=== PATIENT | male | born 1950 | race African-American/Black ===

== ENCOUNTER 2016-10-25 20:28 | Emergency (ER) | payer OTHER ==
[~2016-10-25] VITALS: Ht 189.2 cm; Wt 82.0 kg
[~2016-10-25 20:28] MED LIST: ARIP1TAB46 PO; BISA5TAB64 PO; CYMB30CA PO; GABA100C4 PO; LIPI20TA PO; LISI10TA PO; MEDR4PAK3 PO; METH750T2 PO; MULT-65 PO; PERC5TAB12 PO; PRAZ5CAP16 PO; SUBO8MIS SL; TRAZ100 PO; VIAG100T PO
[2016-10-25 20:32] VITALS: BP 169/78; PULSE 55; RESP 14; TEMP 97.7; O2SAT 98
--- NOTE | 2016-10-25 20:57 | PD ---
HPI Chief Complaint: Pain: Acute or Chronic Time Seen by Provider: 20:48 Travel History International Travel<30 days: No Contact w/Intl Traveler<30days: No Traveled to known affect area: No History of Present Illness HPI 66-year-old male with history of PTSD, hypertension, Suboxone use, presents for evaluation of neck pain. For the past 3 days the patient has had a stiffness on the left posterior aspect of the neck that radiates into the left shoulder. The pain is worse with movement. He has actually had this pain for the past 2 years but it has worsened over the past few days. He says that the pain seems to wax and wane. The patient was seen here once in 2016 and once in 2014 for similar symptoms. He reports that in the past injection of Toradol and Decadron helped with his symptoms. He denies any trauma to the neck. He denies any chest pain, shortness of breath, exertional pain, numbness or tingling or weakness in the extremities. The patient reports a history of "arthritis" but he doesn't believe that he has never had any imaging of his neck. No other complaints. PFSH Past Medical History Hx Anticoagulant Therapy: Yes (ASA) Arthritis: Yes (BACK AND LEGS) Depression: Yes (PTSD) Cardiovascular Problems: Yes (HTN) High Cholesterol: Yes Diminished Hearing: No Hepatitis: Yes (C) Hypertension: Yes Musculoskeletal: Yes (CHRONIC LEG AND BACK PAIN) Neurologic: Yes (PTSD) Immunizations Current: Yes Social History Alcohol Use: No Tobacco Use: No Substance Use: No Allergies-Medications (Allergen,Severity, Reaction): Coded Allergies: No Known Allergies (Verified , 10/25/16) Reported Meds & Prescriptions Reported Meds & Active Scripts Active Medrol Dosepak (Methylprednisolone) 4 Mg Dspk 4 Mg PO DIRECTED Per Pharmacist direction Review of Systems Except as stated in HPI: all other systems reviewed are Neg Physical Exam Narrative GENERAL: Well-developed well-nourished male in no acute distress SKIN: Warm and dry. No rash no bruising or soft tissue swelling HEAD: Atraumatic. Normocephalic. EYES: Pupils equal and round. No scleral icterus. No injection or drainage. ENT: No nasal bleeding or discharge. Mucous membranes pink and moist. NECK: Trachea midline. No JVD. CARDIOVASCULAR: Regular rate and rhythm. No murmur appreciated. RESPIRATORY: No accessory muscle use. Clear to auscultation. Breath sounds equal bilaterally. GASTROINTESTINAL: Abdomen soft, non-tender, nondistended. Hepatic and splenic margins not palpable. MUSCULOSKELETAL: No obvious deformities. The patient has pain with range of motion activities of the neck. There is some tenderness to palpation to the left cervical paravertebral musculature. The patient intends full muscle strength in the upper extremities. Full range of motion the upper extremities. NEUROLOGICAL: Awake and alert. No obvious cranial nerve deficits. Motor grossly within normal limits. Normal speech. Data Data Last Documented VS Vital Signs Date Time Temp Pulse Resp B/P Pulse Ox O2 Delivery O2 Flow Rate FiO2 10/25/16 20:32 97.7 55 14 169/78 98 Room Air Orders Ketorolac Inj (Toradol Inj) (10/25/16 21:00) Dexamethasone Inj (Decadron Inj) (10/25/16 21:00) Ct Cerv Spine W/O Contrast (10/25/16 ) [facility] Medical Decision Making Medical Screen Exam Complete: Yes Emergency Medical Condition: Yes Medical Record Reviewed: Yes Differential Diagnosis Degenerative disc disease, spinal stenosis, herniated nucleus pulposus, mass, fracture, referred cardiac pain, carotid artery dissection, subclavian steal syndrome Narrative Course This is a 66-year-old male who has been experiencing left-sided neck pain that radiates into the left shoulder for the past 2 years, worse over the past 3 days. Pain is unrelieved with the use of Suboxone, Tylenol. He denies any trauma to the neck. On examination the pain is clearly reproduced with movement of the neck and by history and examination is likely musculoskeletal. I don't suspect cardiac etiology in this pain. The patient has never had any imaging of his neck and therefore CT of the cervical spine has been ordered. The patient has achieved some success in the past with the use of Decadron and Toradol injections for pain relief. CT of the cervical spine reveals moderate to severe degenerative disc disease, no acute abnormalities. Upon reexamination the patient feels improved. He has had success in the past with Medrol Dosepak and so he'll be discharged with that. Diagnosis Primary Impression: Degenerative joint disease of cervical spine Qualified Code: M47.22 - Osteoarthritis of spine with radiculopathy, cervical region Additional Impression: Cervical radiculopathy Additional Instructions: Medication as needed. Follow up closely with primary care physician. Return for any emergent medical conditions. Med/Other Pt SpecificInfo: Prescription(s) given Scripts Methylprednisolone Dosepak (Medrol Dosepak)4 Mg Dspk4 Mg PO DIRECTED #1 DSPK Ref 0 Per Pharmacist direction Prov:Carlene Nguyen MD 10/25/16 Disposition: 01 DISCHARGE HOME Condition: Stable Damien Schneider Oct 25, 2016 20:57
[2016-10-25] MEDS ORDERED: KETOROLAC TROMETHAMINE 60 MG/2 ML (IM) VIAL IM ONE (21:00)
[2016-10-25] MEDS ORDERED: DEXAMETHASONE SOD PHOS 4 MG/ML VIAL IM ONE (21:00)
--- NOTE | 2016-10-25 22:21 | RADRPT ---
EXAM DATE/TIME: 10/25/2016 20:58 [facility] COMPARISON: No previous studies available for comparison. INDICATIONS : Chronic left sided neck pain with stiffness. RADIATION DOSE: 17.47 CTDIvol (mGy) MEDICAL HISTORY : Hypertension. SURGICAL HISTORY : None. ENCOUNTER: Initial ACUITY: >1 yr PAIN SCALE: 7/10 LOCATION: Left neck TECHNIQUE: Volumetric scanning of the cervical spine was performed. Multiplanar reconstructions in the sagittal, coronal and oblique axial planes were performed. Using automated exposure control and adjustment o f the mA and/or kV according to patient size, radiation dose was kept as low as reasonably achievable to obtain optimal diagnostic quality images. FINDINGS: There is moderate to severe degenerative disc disease in the cervical spine. No acute fracture or sig nificant spondylolisthesis. There is [id number] canal stenosis at C5-6-7. CONCLUSION: 1. No acute fracture. Moderate to severe degenerative disc disease of the cervical spine. Bashir Bennett MD on October 25, 2016 at 22:17 Board Certified Radiologist. This report was verified electronically.
[2016-10-25] MEDS ORDERED: MEDR4PAK PO (22:37)
== END 2016-10-25 22:47 | disposition home or self-care (01) ==
LOC: NEPB 20:28
DX: M47.812 Spondylosis without myelopathy or radiculopathy, cervical region (principal); M54.12 Radiculopathy, cervical region; I10 Essential (primary) hypertension; E78.00 Pure hypercholesterolemia, unspecified; F43.10 Post-traumatic stress disorder, unspecified
CPT/HCPCS: 72125; 96372; 99283; J1100; J1885

== ENCOUNTER 2017-10-11 18:25 | Inpatient (IN) | payer MEDICARE, OTHER ==
[~2017-10-11] VITALS: Ht 188 cm; Wt 74.0 kg
[2017-10-11] VITALS (7 sets, daily range): BP systolic 136–181; BP diastolic 67–90; PULSE 67–99; RESP 14–22; TEMP 98.5–99; O2SAT 92–95
[~2017-10-11 18:25] MED LIST changes: -ARIP1TAB46 PO; -BISA5TAB64 PO; -CYMB30CA PO; -GABA100C4 PO; -LIPI20TA PO; -LISI10TA PO; +MEDR4PAK PO; -MEDR4PAK3 PO; -METH750T2 PO; -MULT-65 PO; -PERC5TAB12 PO; -PRAZ5CAP16 PO; -SUBO8MIS SL; -TRAZ100 PO; -VIAG100T PO
[2017-10-11] MEDS ORDERED: unknown bp med (18:52)
[2017-10-11] MEDS ORDERED: LIPI10TA PO (18:52)
[2017-10-11] MEDS ORDERED: SODIUM CHLOR 0.9% 1000 ML INJ 1,000 ML IV ONE (19:00)
[2017-10-11] MEDS: RESP: ALBUTEROL 2.5 MG/IPRATROPIUM 0.5 MG NEB (SCH) INH (19:24)
[2017-10-11 19:29] LABS: AUTOMATED NEUTROPHIL # 12.5 TH/MM3 (1.8-7.7); BASOPHIL # 0.2 TH/MM3 (0-0.2); BASOPHIL % 1.5 % (0.0-2.0); HEMATOCRIT 39.3 % (39.0-51.0); LYMPH % 12.7 % (9.0-44.0); LYMPHOCYTE # 2.2 TH/MM3 (1.0-4.8); MEAN CELL VOLUME 87.1 FL (80.0-100.0); MEAN CORPUSCULAR HEMOGLOBIN 28.7 PG (27.0-34.0); MEAN PLATELET VOLUME 8.6 FL (7.0-11.0); MONO % 12.2 % (0.0-8.0); MONOCYTE # 2.1 TH/MM3 (0-0.9); NEUT % 73.6 % (16.0-70.0); PLATELET COUNT 457 TH/MM3 (150-450); RED BLOOD COUNT 4.51 MIL/MM3 (4.50-5.90); RED CELL DISTRIBUTION WIDTH 15.3 % (11.6-17.2)
--- NOTE | 2017-10-11 19:57 | RADRPT ---
EXAM DATE/TIME: 10/11/2017 19:11 [facility] COMPARISON: CHEST SINGLE AP, December 12, 2014, 23:40. INDICATIONS : Flu-like symptoms started 1 week ago. MEDICAL HISTORY : Hypercholesterolemia. Hypertension SURGICAL HISTORY : None. ENCOUNTER: Initial ACUITY: 1 week PAIN SCORE: 0/10 LOCATION: Bilateral chest FINDINGS: A single view of the chest demonstrates acute air space disease in the left midlung and base. Right l anayeli is clear. The cardiomediastinal contours are unremarkable. Osseous structures are intact. CONCLUSION: Acute left mid lung and base airspace disease. Coy Henry MD on October 11, 2017 at 19:54 Board Certified Radiologist. This report was verified electronically.
[2017-10-11 19:59] LABS: BICARBONATE 28.5 MEQ/L (21.0-32.0); CALCIUM 9.3 MG/DL (8.5-10.1); CREATININE 1.36 MG/DL (0.60-1.30); MAGNESIUM 2.4 MG/DL (1.5-2.5)
[2017-10-11 20:07] LABS: BANDS 2 % (0-6); LYMPHOCYTES 7 % (9-44); METAMYELOCYTES 5 % (0-1); MONOCYTES 4 % (0-8); NEUTROPHIL # MANUAL DIFF 15.1 TH/MM3 (1.8-7.7); POLYS (SEG NEUTROPHILS) 82 % (16-70)
[2017-10-11] MEDS ORDERED: cefTRIAXone INJ 1,000 MG in SODIUM CHLORIDE 0.9% INJ 100 ML IV ONE (20:30)
[2017-10-11] MEDS ORDERED: AZITHROMYCIN INJ 500 MG in SODIUM CHLOR 0.9% 250 ML INJ 250 ML IV ONE (20:30)
--- NOTE | 2017-10-11 20:41 | PD ---
HPI Chief Complaint: Cold / Flu Symptoms Time Seen by Provider: 18:50 Travel History International Travel<30 days: No Contact w/Intl Traveler<30days: No Traveled to known affect area: No History of Present Illness HPI 67-year-old male that presents to the ED for evaluation of cold-like symptoms. Per patient she's had this for over a week and a half. He states that he feels weak and tired. Has productive cough and has trouble speaking because of the cough. Cough is nonproductive. No history of COPD or asthma. He states that he comes here with his was also having same symptoms but he had at first. Does having congestion. Per patient his urine has been changing color as well as he believes that he is dehydrated. He denies any recent travel. No chest pain. No shortness of breath. Mainly cough. States having some subjective fevers and chills. Has no known allergies to medication. No other medical issues at this time. PFSH Past Medical History Hx Anticoagulant Therapy: Yes (ASA) Arthritis: Yes (BACK AND LEGS, DJD) Depression: Yes (PTSD) Cardiovascular Problems: Yes (HTN) High Cholesterol: Yes Diminished Hearing: No Hepatitis: Yes (C- treated) Hypertension: Yes Musculoskeletal: Yes (CHRONIC LEG AND BACK PAIN) Neurologic: Yes (PTSD) Immunizations Current: Yes Influenza Vaccination: No Past Surgical History Surgical History: No Previous Surgery Social History Alcohol Use: No Tobacco Use: No Substance Use: No Allergies-Medications (Allergen,Severity, Reaction): Coded Allergies: No Known Allergies (Verified Adverse Reaction, Unknown, 10/11/17) Reported Meds & Prescriptions Reported Meds & Active Scripts Active Reported [unknown bp med] Lipitor (Atorvastatin Calcium) 10 Mg Tab 10 Mg PO HS Review of Systems Except as stated in HPI: all other systems reviewed are Neg Physical Exam Narrative GENERAL: Well-nourished, well-developed patient in no apparent distress. SKIN: Warm and dry. HEAD: Atraumatic. Normocephalic. EYES: Pupils equal and round reactive to light and accommodation. No scleral icterus. No injection or drainage. ENT: No nasal bleeding or discharge. Mucous membranes pink and moist. TMs are clear with no sign of infection or perforation. No mastoid tenderness. Ear canals are intact bilaterally. No lymphadenopathy. Nostril mucosa is red and moist with clear mucus noted. No sinus tenderness to palpation noted. Tonsils are not enlarged or swollen. No ulvua Deviation. Tongue is midline. NECK: Trachea midline. No JVD. No meningeal signs noted CARDIOVASCULAR: Regular rate and rhythm. RESPIRATORY: No accessory muscle use. Patient has wheezing and rales heard especially in the lower lung chin. Breath sounds equal bilaterally. GASTROINTESTINAL: Abdomen soft, non-tender, nondistended. Hepatic and splenic margins not palpable. MUSCULOSKELETAL: Extremities without clubbing, cyanosis, or edema. No obvious deformities. NEUROLOGICAL: Awake and alert. No obvious cranial nerve deficits. Motor grossly within normal limits. Five out of 5 muscle strength in the arms and legs. Normal speech. PSYCHIATRIC: Appropriate mood and affect; insight and judgment normal. Data Data Last Documented VS Vital Signs Date Time Temp Pulse Resp B/P (MAP) Pulse Ox O2 Delivery O2 Flow Rate FiO2 10/11/17 19:10 67 22 148/67 (94) 92 Room Air 10/11/17 18:26 98.5 Orders Orders Complete Blood Count With Diff (10/11/17 19:00) Basic Metabolic Panel (Bmp) (10/11/17 19:00) Blood Culture (10/11/17 19:00) Urinalysis - C+S If Indicated (10/11/17 19:00) Magnesium (Mg) (10/11/17 19:00) Influenzae A/B Antigen (10/11/17 19:00) Chest, Single Ap (10/11/17 19:00) Iv Access Insert/Monitor (10/11/17 19:00) Oximetry (10/11/17 19:00) Sodium Chlor 0.9% 1000 Ml Inj (Ns 1000 M (10/11/17 19:00) Albuterol-Ipratropium Neb (Duoneb Neb) (10/11/17 19:15) Ceftriaxone Inj (Rocephin Inj) (10/11/17 20:30) Azithromycin Inj (Zithromax Inj) (10/11/17 20:30) Admit Order (Ed Use Only) (10/11/17 20:35) Labs Laboratory Tests Test 10/11/17 19:20 White Blood Count 17.0 TH/MM3 Red Blood Count 4.51 MIL/MM3 Hemoglobin 13.0 GM/DL Hematocrit 39.3 % Mean Corpuscular Volume 87.1 FL Mean Corpuscular Hemoglobin 28.7 PG Mean Corpuscular Hemoglobin Concent 33.0 % Red Cell Distribution Width 15.3 % Platelet Count 457 TH/MM3 Mean Platelet Volume 8.6 FL Neutrophils (%) (Auto) 73.6 % Lymphocytes (%) (Auto) 12.7 % Monocytes (%) (Auto) 12.2 % Eosinophils (%) (Auto) 0.0 % Basophils (%) (Auto) 1.5 % Neutrophils # (Auto) 12.5 TH/MM3 Lymphocytes # (Auto) 2.2 TH/MM3 Monocytes # (Auto) 2.1 TH/MM3 Eosinophils # (Auto) 0.0 TH/MM3 Basophils # (Auto) 0.2 TH/MM3 CBC Comment AUTO DIFF Differential Total Cells Counted 100 Neutrophils % (Manual) 82 % Band Neutrophils % 2 % Lymphocytes % 7 % Monocytes % 4 % Neutrophils # (Manual) 15.1 TH/MM3 Metamyelocytes 5 % Differential Comment FINAL DIFF MANUAL Blood Urea Nitrogen 29 MG/DL Creatinine 1.36 MG/DL Random Glucose 127 MG/DL Calcium Level 9.3 MG/DL Magnesium Level 2.4 MG/DL Sodium Level 137 MEQ/L Potassium Level 4.0 MEQ/L Chloride Level 101 MEQ/L Carbon Dioxide Level 28.5 MEQ/L Anion Gap 8 MEQ/L Estimat Glomerular Filtration Rate 64 ML/MIN MDM Medical Decision Making Medical Screen Exam Complete: Yes Emergency Medical Condition: Yes Medical Record Reviewed: Yes Interpretation(s) Last Impressions Chest X-Ray 10/11/17 1900 Signed Impressions: Service Date/Time: Wednesday, October 11, 2017 19:11 - CONCLUSION: Acute left mid lung and base airspace disease. Coy Henry MD CBC & BMP Diagram 10/11/17 19:20 Calcium Level 9.3, Magnesium Level 2.4 Differential Diagnosis Bronchitis versus pneumonia versus influenza versus normal exam Narrative Course 67-year-old male that presents to the ED for evaluation of cold-like symptoms. Patient was properly examined and was found to have signs and symptoms concerning for pneumonia. Labs and imaging were ordered. Labs and imaging confirmed pneumonia diagnosis with leukocytosis. Patient has been noted to be satting at 93/94 here. Concern for hypoxia. Patient denies any history of COPD or asthma. Because of patient's symptoms, she is for admission. My attending Dr. Nguyen agrees with this. Case was discussed with Dr. Wu who agrees to admission. Patient agrees to this. Patient was started on antibiotics. Diagnosis Primary Impression: Pneumonia Qualified Codes: J18.9 - Pneumonia, unspecified organism Additional Impression: Hypoxia Admitting Information Admitting Physician Requests: Admit Robbie Ortiz Oct 11, 2017 20:41
[2017-10-11] MEDS ORDERED: ONDANSETRON HCL 4 MG/2 ML VIAL IVP PRN (20:45)
[2017-10-11] MEDS ORDERED: RESP: ALBUTEROL 2.5 MG/IPRATROPIUM 0.5 MG NEB (PRN) NEB (20:45)
[2017-10-11] MEDS ORDERED: ACETAMINOPHEN 325 MG TAB PO PRN (20:45)
[2017-10-11] MEDS ORDERED: LACTULOSE SYRUP 20 GM/30 ML CUP PO PRN (20:45)
[2017-10-11] MEDS ORDERED: SODIUM CHLORIDE 0.9% FLUSH 10 ML FLUSH IV FLUSH PRN (20:45)
[2017-10-11] MEDS ORDERED: MAGNESIUM HYDROXIDE SUSP 30 ML CUP PO PRN (20:45)
[2017-10-11] MEDS ORDERED: SENNOSIDES 8.6 MG TAB PO PRN (20:45)
[2017-10-11] MEDS ORDERED: ACETAMINOPHEN/HYDROcodone 325 MG/5 MG TAB PO PRN (20:45)
[2017-10-11] MEDS ORDERED: BISACODYL 10 MG SUPP RECTAL PRN (20:45)
--- NOTE | 2017-10-11 20:47 | HHI.HP ---
HPI Service [facility] Primary Care Physician [facility] Admission Diagnosis acute pneumonia, hypoxia Diagnoses: (1) PNA (pneumonia) Diagnosis: Principal (2) HTN (hypertension) Diagnosis: Principal (3) Renal insufficiency Diagnosis: Principal Travel History International Travel<30 Days: No Contact w/Intl Traveler <30 Da: No Traveled to Known Affected Are: No History of Present Illness This is a 67-year-old male with a PMH of HTN, Hepatitis C, Hyperlipidemia, Depression and Arthritis who presented to the ER w/ complaints of cough and generalized fatigue for almost 2wks. Reports persistent productive cough w/ yellow/brown colored sputum in addition to nasal congestion. Denies fever or chills. Does report associated SOB, worse w/ exertion, moderate severity. No sick contacts. On arrival, BP 180/80, HR 78, O2 sat 94% on RA, Afebrile. WBC 17. Creatinine 1.36, previously 1.56 on 05/30/16. CXR with acute left mid lung and base airspace disease. S/p Rocephin/Zithro in ER. Review of Systems Except as stated in HPI: all other systems reviewed are Neg ROS: 14 point review of systems otherwise negative. Past Family Social History Past Medical History PMH: HTN, Hepatitis C, Hyperlipidemia, Depression and Arthritis Past Surgical History PAST SURGICAL HISTORY: None Allergies: Coded Allergies: No Known Allergies (Verified Adverse Reaction, Unknown, 10/11/17) Family History PAST FAMILY HISTORY: Reviewed. No h/o DM or CAD Social History PAST SOCIAL HISTORY: Negative for alcohol, tobacco or drugs. Physical Exam Vital Signs Vital Signs Date Time Temp Pulse Resp B/P (MAP) Pulse Ox O2 Delivery O2 Flow Rate FiO2 10/11/17 19:10 67 22 148/67 (94) 92 Room Air 10/11/17 19:10 92 Room Air 10/11/17 18:53 69 20 137/90 (106) 93 Room Air 10/11/17 18:26 98.5 78 14 180/80 (113) 94 Physical Exam PE: GENERAL: Pleasant middle-aged male in no acute distress. HEENT: PERRLA, EOMI. No scleral icterus or conjunctival pallor. No lid lag or facial droop. CARDIOVASCULAR: Regular rate and rhythm. No obvious murmurs to auscultation. No chest tenderness to palpation. RESPIRATORY: +rhonchi, no wheezing. Otherwise clear to auscultation. Breath sounds equal bilaterally. GASTROINTESTINAL: Abdomen soft, non-tender, nondistended. BS normal. MUSCULOSKELETAL: Extremities without clubbing, cyanosis, or edema. No obvious deformities. NEUROLOGICAL: Awake, alert and oriented x4. No focal neurologic deficits. Moving both upper and lower extremities spontaneously. Laboratory Laboratory Tests Test 10/11/17 19:20 White Blood Count 17.0 Red Blood Count 4.51 Hemoglobin 13.0 Hematocrit 39.3 Mean Corpuscular Volume 87.1 Mean Corpuscular Hemoglobin 28.7 Mean Corpuscular Hemoglobin Concent 33.0 Red Cell Distribution Width 15.3 Platelet Count 457 Mean Platelet Volume 8.6 Neutrophils (%) (Auto) 73.6 Lymphocytes (%) (Auto) 12.7 Monocytes (%) (Auto) 12.2 Eosinophils (%) (Auto) 0.0 Basophils (%) (Auto) 1.5 Neutrophils # (Auto) 12.5 Lymphocytes # (Auto) 2.2 Monocytes # (Auto) 2.1 Eosinophils # (Auto) 0.0 Basophils # (Auto) 0.2 CBC Comment AUTO DIFF Differential Total Cells Counted 100 Neutrophils % (Manual) 82 Band Neutrophils % 2 Lymphocytes % 7 Monocytes % 4 Neutrophils # (Manual) 15.1 Metamyelocytes 5 Differential Comment FINAL DIFF MANUAL Blood Urea Nitrogen 29 Creatinine 1.36 Random Glucose 127 Calcium Level 9.3 Magnesium Level 2.4 Sodium Level 137 Potassium Level 4.0 Chloride Level 101 Carbon Dioxide Level 28.5 Anion Gap 8 Estimat Glomerular Filtration Rate 64 Date/Time Source Procedure Growth Status 10/11/17 19:20 Blood Peripheral Aerobic Blood Culture Pending Received 10/11/17 19:20 Blood Peripheral Anaerobic Blood Culture Pending Received 10/11/17 19:20 Nasal Washing Influenza Types A,B Antigen (DUANE) - Final NEGATIVE FOR FLU A AND B ANTIGEN.... Complete Result Diagram: 10/11/17191910/11/171919 Caprini VTE Risk Assessment Caprini VTE Risk Assessment: No/Low Risk (score <= 1) Caprini Risk Assessment Model Point Value = 1 Point Value = 2 Point Value = 3 Point Value = 5 Age 41-60 Minor surgery BMI > 25 kg/m2 Swollen legs Varicose veins or History of unexplained or recurrent spontaneous Oral contraceptives or hormone replacement Sepsis (< 1 month) Serious lung disease, including pneumonia (< 1 month) Abnormal pulmonary function Acute myocardial infarction Congestive heart failure (< 1 month) History of inflammatory bowel disease Medical patient at bed rest Age 61-74 Arthroscopic surgery Major open surgery (> 45 min) Laparoscopic surgery (> 45 min) Malignancy Confined to bed (> 72 hours) Immobilizing plaster cast Central venous access Age >= 75 History of VTE Family history of VTE Factor V Leiden Prothrombin [id number] Lupus anticoagulant Anticardiolipin antibodies Elevated serum homocysteine Heparin-induced thrombocytopenia Other congenital or acquired thrombophilia Stroke (< 1 month) Elective arthroplasty Hip, pelvis, or leg fracture Acute spinal cord injury (< 1 month) Prophylaxis Regimen Total Risk Factor Score Risk Level Prophylaxis Regimen 0-1 Low Early ambulation 2 Moderate Order ONE of the following: *Sequential Compression Device (SCD) *Heparin 5000 units SQ BID 3-4 Higher Order ONE of the following medications: *Heparin 5000 units SQ TID *Enoxaparin/Lovenox 40 mg SQ daily (WT < 150 kg, CrCl > 30 mL/min) *Enoxaparin/Lovenox 30 mg SQ daily (WT < 150 kg, CrCl > 10-29 mL/min) *Enoxaparin/Lovenox 30 mg SQ BID (WT < 150 kg, CrCl > 30 mL/min) AND/OR *Sequential Compression Device (SCD) 5 or more Highest Order ONE of the following medications: *Heparin 5000 units SQ TID (Preferred with Epidurals) *Enoxaparin/Lovenox 40 mg SQ daily (WT < 150 kg, CrCl > 30 mL/min) *Enoxaparin/Lovenox 30 mg SQ daily (WT < 150 kg, CrCl > 10-29 mL/min) *Enoxaparin/Lovenox 30 mg SQ BID (WT < 150 kg, CrCl > 30 mL/min) AND *Sequential Compression Device (SCD) Assessment and Plan Problem List: (1) PNA (pneumonia) ICD Code: J18.9 - Pneumonia, unspecified organism (2) HTN (hypertension) ICD Code: I10 - Essential (primary) hypertension (3) Renal insufficiency ICD Code: N28.9 - Disorder of kidney and ureter, unspecified Assessment and Plan A/P: 1. PNA: productive cough, nasal congestion and SOB x2 wks. CXR w/ acute left mid lung and base airspace disease, images reviewed by me. Flu A/B negative. S /p Rocephin/Zithro and Blood Cultures in ER. Continue w/ IV Abx, follow up cultures, DuoNeb prn, Symbicort bid, Mucinex. Check Sputum Cultures. 2. HTN: Uncontrolled. BP 180's on arrival, likely compounded by acute respiratory distress. Pt cannot recall what medication he takes at home, will monitor BP closely, start antihypertensives for persistent hypertension. 3. Renal Insufficiency: Creatinine 1.36, previously 1.56 on 05/30/16. S/p IVF , will repeat labs in am. 4. DVT Prophylaxis: SCD/Teds 5. Social work for d/c planning as needed. 6. Records/labs/imaging reviewed by me, case discussed at length w/ ER physician. Physician Certification 2 Midnight Certification Type: Admission for Inpatient Services Order for Inpatient Services The services are ordered in accordance with Medicare regulations or non- Medicare payer requirements, as applicable. In the case of services not specified as inpatient-only, they are appropriately provided as inpatient services in accordance with the 2-midnight benchmark. Estimated LOS (days): 2 days is the estimated time the patient will need to remain in the hospital, assuming treatment plan goals are met and no additional complications. Post-Hospital Plan: Not yet determined Mindy Wu MD Oct 11, 2017 20:47
[2017-10-11] MEDS: SODIUM CHLORIDE 0.9% FLUSH 10 ML FLUSH IV FLUSH SCH (21:00)
[2017-10-11] MEDS: BUDESONIDE-FORMOTEROL 160/4.5 MCG INHALER INH SCH (21:00)
[2017-10-11] MEDS: guaiFENesin E.R. 600 MG TAB PO SCH (21:48)
[2017-10-11] MEDS: DOCUSATE SODIUM 50 MG/SENNA 8.6 MG TAB PO SCH (21:48)
[2017-10-12] VITALS (9 sets, daily range): BP systolic 148–191; BP diastolic 71–84; PULSE 65–93; RESP 16–20; TEMP 97.8–101.3; O2SAT 91–96
[2017-10-12] MEDS: BUDESONIDE-FORMOTEROL 160/4.5 MCG INHALER INH SCH ×2 (08:59→21:00)
[2017-10-12] MEDS: guaiFENesin E.R. 600 MG TAB PO SCH ×2 (09:00→22:14)
[2017-10-12] MEDS: DOCUSATE SODIUM 50 MG/SENNA 8.6 MG TAB PO SCH ×2 (09:00→22:14)
[2017-10-12] MEDS: SODIUM CHLORIDE 0.9% FLUSH 10 ML FLUSH IV FLUSH SCH ×2 (09:00→22:14)
[2017-10-12 09:34] LABS: AUTOMATED NEUTROPHIL # 12.5 TH/MM3 (1.8-7.7); BASOPHIL # 0.1 TH/MM3 (0-0.2); BASOPHIL % 0.6 % (0.0-2.0); HEMATOCRIT 38.1 % (39.0-51.0); HEMOGLOBIN 12.5 GM/DL (13.0-17.0); LYMPH % 11.7 % (9.0-44.0); LYMPHOCYTE # 1.9 TH/MM3 (1.0-4.8); MEAN CELL VOLUME 87.4 FL (80.0-100.0); MEAN CORPUSCULAR HEMOGLOBIN 28.6 PG (27.0-34.0); MEAN CORPUSCULAR HGB CONC 32.8 % (32.0-36.0); MEAN PLATELET VOLUME 9.1 FL (7.0-11.0); MONO % 12.1 % (0.0-8.0); NEUT % 75.6 % (16.0-70.0); PLATELET COUNT 474 TH/MM3 (150-450); RED BLOOD COUNT 4.36 MIL/MM3 (4.50-5.90); RED CELL DISTRIBUTION WIDTH 15.3 % (11.6-17.2); WHITE BLOOD COUNT 16.5 TH/MM3 (4.0-11.0)
[2017-10-12 10:01] LABS: ALBUMIN 2.4 GM/DL (3.4-5.0); AST (GOT) 72 U/L (15-37); BICARBONATE 27.3 MEQ/L (21.0-32.0); BLOOD UREA NITROGEN 22 MG/DL (7-18); CHLORIDE 102 MEQ/L (98-107); CREATININE 1.14 MG/DL (0.60-1.30); GLOMERULAR FILTRATION RATE 78 ML/MIN (>89); GLUCOSE,RANDOM 119 MG/DL (74-106); SODIUM (NA) 136 MEQ/L (136-145)
[2017-10-12 10:02] LABS: ALT (GPT) 51 U/L (12-78)
[2017-10-12 10:03] LABS: ALKALINE PHOSPHATASE 131 U/L (45-117); TOTAL BILIRUBIN ADULT 1.5 MG/DL (0.2-1.0); TOTAL PROTEIN 7.8 GM/DL (6.4-8.2)
[2017-10-12 10:16] LABS: BANDS 22 % (0-6); BASOPHILS 1 % (0-2); LYMPHOCYTES 21 % (9-44); MONOCYTES 4 % (0-8); POLYS (SEG NEUTROPHILS) 51 % (16-70)
[2017-10-12 10:18] LABS: DOHLE BODIES PRESENT (NONE SEEN)
--- NOTE | 2017-10-12 12:48 | HHI.PR ---
Subjective Remarks Follow-up pneumonia. Patient still reporting productive cough, some dyspnea. No other complaints at this time. Cough is productive of yellowish sputum. Objective Vitals Vital Signs Date Time Temp Pulse Resp B/P (MAP) Pulse Ox O2 Delivery O2 Flow Rate FiO2 10/12/17 12:00 98.9 71 16 181/83 (115) 94 10/12/17 09:25 93 Nasal Cannula 2.00 10/12/17 08:00 98.7 66 18 159/74 (102) 96 10/12/17 04:07 93 Nasal Cannula 2.00 10/12/17 04:00 99.8 93 20 156/76 (102) 93 10/12/17 00:00 101.3 74 20 151/72 (98) 91 10/11/17 21:57 99.0 79 19 153/76 (101) 92 10/11/17 21:24 75 20 136/77 (96) 92 10/11/17 21:15 95 Nasal Cannula 2.00 10/11/17 20:51 99 22 181/78 (112) 94 Nasal Cannula 2.00 10/11/17 19:10 67 22 148/67 (94) 92 Room Air 10/11/17 19:10 92 Room Air 10/11/17 18:53 69 20 137/90 (106) 93 Room Air 10/11/17 18:26 98.5 78 14 180/80 (113) 94 I/O 10/11/17 10/11/17 10/11/17 10/12/17 10/12/17 10/12/17 07:00 15:00 23:00 07:00 15:00 23:00 Intake Total 1350 ml 1600 ml Output Total 800 ml Balance 1350 ml 800 ml Intake Oral 1600 ml IV Total 1350 ml Output Urine Total 800 ml # Voids 1 # Bowel Movements 0 Result Diagram: 10/12/17 0854 10/12/17 0854 Imaging Last Impressions Chest X-Ray 10/11/17 1900 Signed Impressions: Service Date/Time: Wednesday, October 11, 2017 19:11 - CONCLUSION: Acute left mid lung and base airspace disease. Coy Henry MD Objective Remarks General: No acute distress. Heart: Regular rate and rhythm. No murmur. Lungs: Scattered rhonchi. Breathing is nonlabored. Abdomen: Soft, nontender, nondistended. Extremities: No lower extremity edema. Psych: Alert and oriented. Procedures None Urinary Catheter: No Vascular Central Line Catheter: No A/P Problem List: (1) PNA (pneumonia) ICD Code: J18.9 - Pneumonia, unspecified organism (2) HTN (hypertension) ICD Code: I10 - Essential (primary) hypertension (3) Renal insufficiency ICD Code: N28.9 - Disorder of kidney and ureter, unspecified Assessment and Plan 1. Pneumonia: Chest x-ray shows acute left mid lung and base airspace disease. Influenza negative. Continue Rocephin, azithromycin. Blood cultures are pending. Continue supplemental oxygen, DuoNeb, Symbicort, Mucinex. Sputum culture ordered. 2. Hypertension: Poorly controlled. Patient does not recall what his blood pressure medications are. Start amlodipine. 3. Acute kidney injury: Possible component of chronic kidney disease. Creatinine improving. 4. DVT prophylaxis: MARY Best. Naresh Silva MD Oct 12, 2017 12:48
[2017-10-12] MEDS: amLODIPine BESYLATE 5 MG TAB PO SCH (13:13)
[2017-10-12] MEDS: ACETAMINOPHEN/HYDROcodone 325 MG/10 MG TAB PO PRN ×2 (15:27→22:24)
[2017-10-12] MEDS: AZITHROMYCIN INJ 500 MG in SODIUM CHLOR 0.9% 250 ML INJ 250 ML IV SCH (22:14)
[2017-10-12] MEDS: cefTRIAXone INJ 1,000 MG in SODIUM CHLORIDE 0.9% INJ 100 ML IV SCH (22:15)
[2017-10-13] VITALS (9 sets, daily range): BP systolic 137–181; BP diastolic 62–82; PULSE 56–78; RESP 18–19; TEMP 97.5–99.1; O2SAT 91–96
[2017-10-13 07:45] LABS: AUTOMATED NEUTROPHIL # 16.4 TH/MM3 (1.8-7.7); BASOPHIL # 0.1 TH/MM3 (0-0.2); BASOPHIL % 0.7 % (0.0-2.0); EOSINOPHIL % 0.1 % (0.0-4.0); HEMATOCRIT 37.3 % (39.0-51.0); HEMOGLOBIN 12.3 GM/DL (13.0-17.0); LYMPHOCYTE # 1.8 TH/MM3 (1.0-4.8); MEAN CELL VOLUME 87.9 FL (80.0-100.0); MEAN CORPUSCULAR HEMOGLOBIN 29.1 PG (27.0-34.0); MEAN CORPUSCULAR HGB CONC 33.1 % (32.0-36.0); MEAN PLATELET VOLUME 9.5 FL (7.0-11.0); MONO % 8.7 % (0.0-8.0); MONOCYTE # 1.7 TH/MM3 (0-0.9); NEUT % 81.5 % (16.0-70.0); PLATELET COUNT 566 TH/MM3 (150-450); RED BLOOD COUNT 4.24 MIL/MM3 (4.50-5.90); RED CELL DISTRIBUTION WIDTH 15.6 % (11.6-17.2); WHITE BLOOD COUNT 20.1 TH/MM3 (4.0-11.0)
[2017-10-13 08:08] LABS: BICARBONATE 26.5 MEQ/L (21.0-32.0); CALCIUM 8.7 MG/DL (8.5-10.1); CREATININE 0.94 MG/DL (0.60-1.30)
[2017-10-13] MEDS: BUDESONIDE-FORMOTEROL 160/4.5 MCG INHALER INH SCH ×2 (09:00→21:55)
[2017-10-13] MEDS: DOCUSATE SODIUM 50 MG/SENNA 8.6 MG TAB PO SCH ×2 (10:17→21:56)
[2017-10-13] MEDS: amLODIPine BESYLATE 5 MG TAB PO SCH (10:17)
[2017-10-13] MEDS: SODIUM CHLORIDE 0.9% FLUSH 10 ML FLUSH IV FLUSH SCH ×2 (10:19→21:56)
[2017-10-13] MEDS: guaiFENesin E.R. 600 MG TAB PO SCH ×2 (10:19→21:56)
[2017-10-13] MEDS: ACETAMINOPHEN/HYDROcodone 325 MG/10 MG TAB PO PRN ×3 (10:24→21:56)
--- NOTE | 2017-10-13 10:46 | HHI.PR ---
Subjective Remarks Follow-up pneumonia. Patient reports less shortness of breath and cough today. Still requiring supplemental oxygen. Objective Vitals Vital Signs Date Time Temp Pulse Resp B/P (MAP) Pulse Ox O2 Delivery O2 Flow Rate FiO2 10/13/17 08:00 99.1 68 18 181/82 (115) 94 10/13/17 06:27 98.0 61 19 163/78 (106) 96 10/13/17 01:54 98.1 56 18 138/69 (92) 95 10/12/17 20:55 97.8 65 18 148/71 (96) 95 10/12/17 17:45 93 Nasal Cannula 2.00 10/12/17 16:00 99.0 76 18 191/84 (119) 93 10/12/17 12:00 98.9 71 16 181/83 (115) 94 I/O 10/12/17 10/12/17 10/12/17 10/13/17 10/13/17 10/13/17 07:00 15:00 23:00 07:00 15:00 23:00 Intake Total 1600 ml 1160 ml Output Total 800 ml Balance 800 ml 1160 ml Intake Oral 1600 ml 1160 ml Output Urine Total 800 ml # Bowel Movements 0 Result Diagram: 10/13/17 0640 10/13/17 0640 Imaging Last Impressions Chest X-Ray 10/11/17 1900 Signed Impressions: Service Date/Time: Wednesday, October 11, 2017 19:11 - CONCLUSION: Acute left mid lung and base airspace disease. Coy Henry MD Objective Remarks General: No acute distress. Heart: Regular rate and rhythm. No murmur. Lungs: Scattered rhonchi. Breathing is nonlabored. Abdomen: Soft, nontender, nondistended. Extremities: No lower extremity edema. Psych: Alert and oriented. Procedures None Urinary Catheter: No Vascular Central Line Catheter: No A/P Problem List: (1) PNA (pneumonia) ICD Code: J18.9 - Pneumonia, unspecified organism (2) HTN (hypertension) ICD Code: I10 - Essential (primary) hypertension (3) Renal insufficiency ICD Code: N28.9 - Disorder of kidney and ureter, unspecified Assessment and Plan 1. Pneumonia: Chest x-ray shows acute left mid lung and base airspace disease. Influenza negative. Continue Rocephin, azithromycin. Blood cultures are negative so far. Continue supplemental oxygen, DuoNeb, Symbicort, Mucinex. Sputum culture ordered. WBCs are increasing. 2. Hypertension: Poorly controlled. Patient does not recall what his blood pressure medications are. Increase amlodipine. 3. Acute kidney injury: Possible component of chronic kidney disease. Creatinine improving. 4. DVT prophylaxis: MARY Best. Naresh Silva MD Oct 13, 2017 10:46
[2017-10-13] MEDS: AZITHROMYCIN INJ 500 MG in SODIUM CHLOR 0.9% 250 ML INJ 250 ML IV SCH (21:55)
[2017-10-13] MEDS: cefTRIAXone INJ 1,000 MG in SODIUM CHLORIDE 0.9% INJ 100 ML IV SCH (21:56)
[2017-10-14] VITALS: BP 169/84; PULSE 61; RESP 18; TEMP 98.7; O2SAT 96
[2017-10-14 04:00] VITALS: BP 141/78; PULSE 73; RESP 20; TEMP 98.3; O2SAT 94
[2017-10-14 07:21] LABS: AUTOMATED NEUTROPHIL # 16.2 TH/MM3 (1.8-7.7); BASOPHIL # 0.2 TH/MM3 (0-0.2); EOSINOPHIL # 0.1 TH/MM3 (0-0.4); EOSINOPHIL % 0.3 % (0.0-4.0); HEMATOCRIT 37.8 % (39.0-51.0); HEMOGLOBIN 12.4 GM/DL (13.0-17.0); LYMPH % 5.8 % (9.0-44.0); LYMPHOCYTE # 1.1 TH/MM3 (1.0-4.8); MEAN CELL VOLUME 86.6 FL (80.0-100.0); MEAN CORPUSCULAR HEMOGLOBIN 28.5 PG (27.0-34.0); MEAN CORPUSCULAR HGB CONC 32.9 % (32.0-36.0); MEAN PLATELET VOLUME 9.5 FL (7.0-11.0); MONO % 4.7 % (0.0-8.0); MONOCYTE # 0.9 TH/MM3 (0-0.9); NEUT % 88.2 % (16.0-70.0); PLATELET COUNT 628 TH/MM3 (150-450); RED BLOOD COUNT 4.36 MIL/MM3 (4.50-5.90); RED CELL DISTRIBUTION WIDTH 15.5 % (11.6-17.2); WHITE BLOOD COUNT 18.3 TH/MM3 (4.0-11.0)
[2017-10-14 07:39] LABS: BICARBONATE 27.8 MEQ/L (21.0-32.0); CREATININE 0.91 MG/DL (0.60-1.30)
[2017-10-14 08:00] VITALS: BP 160/73; PULSE 69; RESP 18; TEMP 100.4; O2SAT 96
[2017-10-14 08:27] LABS: BANDS 9 % (0-6); LYMPHOCYTES 10 % (9-44); METAMYELOCYTES 1 % (0-1); MONOCYTES 7 % (0-8); POLYS (SEG NEUTROPHILS) 72 % (16-70)
[2017-10-14] MEDS: SODIUM CHLORIDE 0.9% FLUSH 10 ML FLUSH IV FLUSH SCH ×2 (09:00→21:54)
[2017-10-14] MEDS: BUDESONIDE-FORMOTEROL 160/4.5 MCG INHALER INH SCH ×2 (09:00→21:54)
[2017-10-14] MEDS: DOCUSATE SODIUM 50 MG/SENNA 8.6 MG TAB PO SCH ×2 (10:08→21:52)
[2017-10-14] MEDS: guaiFENesin E.R. 600 MG TAB PO SCH ×2 (10:09→21:52)
[2017-10-14] MEDS: amLODIPine BESYLATE 5 MG TAB PO SCH (10:10)
[2017-10-14] MEDS: ACETAMINOPHEN/HYDROcodone 325 MG/10 MG TAB PO PRN ×3 (10:11→22:00)
[2017-10-14 12:57] VITALS: BP 129/80; PULSE 65; RESP 18; TEMP 99; O2SAT 96
--- NOTE | 2017-10-14 13:33 | HHI.PR ---
Subjective Remarks Follow up pneumonia. The patient states that he is feeling better today. Shortness of breath is improving. He had low-grade fever this morning. Objective Vitals Vital Signs Date Time Temp Pulse Resp B/P (MAP) Pulse Ox O2 Delivery O2 Flow Rate FiO2 10/14/17 12:57 99.0 65 18 129/80 (96) 96 10/14/17 08:00 100.4 69 18 160/73 (102) 96 10/14/17 04:00 98.3 73 20 141/78 (99) 94 10/14/17 00:00 98.7 61 18 169/84 (112) 96 10/13/17 23:50 95 Nasal Cannula 2.00 10/13/17 20:00 97.5 67 18 137/66 (89) 91 10/13/17 16:00 97.5 65 18 166/75 (105) 91 I/O 10/13/17 10/13/17 10/13/17 10/14/17 10/14/17 10/14/17 07:00 15:00 23:00 07:00 15:00 23:00 Intake Total 480 ml Balance 480 ml Intake Oral 480 ml # Voids 5 # Bowel Movements 2 Result Diagram: 10/14/17 0636 10/14/17 0636 Imaging Last Impressions Chest X-Ray 10/11/17 1900 Signed Impressions: Service Date/Time: Wednesday, October 11, 2017 19:11 - CONCLUSION: Acute left mid lung and base airspace disease. Coy Henry MD Objective Remarks General: No acute distress. Heart: Regular rate and rhythm. No murmur. Lungs: Scattered rhonchi. Breathing is nonlabored. Abdomen: Soft, nontender, nondistended. Extremities: No lower extremity edema. Psych: Alert and oriented. Procedures None Urinary Catheter: No Vascular Central Line Catheter: No A/P Problem List: (1) PNA (pneumonia) ICD Code: J18.9 - Pneumonia, unspecified organism (2) HTN (hypertension) ICD Code: I10 - Essential (primary) hypertension (3) Renal insufficiency ICD Code: N28.9 - Disorder of kidney and ureter, unspecified Assessment and Plan 1. Pneumonia: Chest x-ray shows acute left mid lung and base airspace disease. Influenza negative. Continue Rocephin, azithromycin. Blood cultures are negative so far. Continue supplemental oxygen, DuoNeb, Symbicort, Mucinex. Sputum culture ordered. WBCs are trending down. 2. Hypertension: Patient does not recall what his blood pressure medications are. Continue amlodipine. 3. Acute kidney injury: Resolved. 4. DVT prophylaxis: MARY Best. Discharge Planning Possible discharge home tomorrow. Naresh Silva MD Oct 14, 2017 13:33
[2017-10-14] MEDS ORDERED: AMLO5 PO (13:36)
[2017-10-14] MEDS ORDERED: OXYGENDME NAS.CANULA (13:36)
[2017-10-14] MEDS ORDERED: AZIT500T2 PO (13:36)
[2017-10-14] MEDS ORDERED: CEFU1TAB18 PO (13:36)
--- NOTE | 2017-10-14 13:37 | HHI.FF ---
Face to Face Verification Diagnosis: (1) Pneumonia (2) Hypoxia (3) Renal insufficiency Home Health Nursing Order: Oxygen administration education I have seen patient Booker YoungJr lyle on 10/14/17. My clinical findings support the need for the requested home health care services because: Patient has SOB I certify that my clinical findings support that this patient is homebound because: Unsafe to leave home unassisted Naresh Silva MD Oct 14, 2017 13:37
[2017-10-14 16:00] VITALS: BP 185/86; PULSE 72; RESP 18; TEMP 98.4; O2SAT 95
[2017-10-14 20:38] VITALS: BP 170/73; PULSE 62; RESP 18; TEMP 98.6; O2SAT 91
[2017-10-14] MEDS: cefTRIAXone INJ 1,000 MG in SODIUM CHLORIDE 0.9% INJ 100 ML IV SCH (21:52)
[2017-10-14] MEDS: AZITHROMYCIN INJ 500 MG in SODIUM CHLOR 0.9% 250 ML INJ 250 ML IV SCH (21:54)
[2017-10-15] VITALS: BP 147/82; PULSE 67; RESP 20; TEMP 98; O2SAT 98
[2017-10-15 04:00] VITALS: BP 167/78; PULSE 65; RESP 18; TEMP 98.7; O2SAT 94
[2017-10-15 08:11] LABS: AUTOMATED NEUTROPHIL # 14.5 TH/MM3 (1.8-7.7); BASOPHIL # 0.2 TH/MM3 (0-0.2); BASOPHIL % 1.2 % (0.0-2.0); EOSINOPHIL # 0.1 TH/MM3 (0-0.4); EOSINOPHIL % 0.7 % (0.0-4.0); HEMATOCRIT 37.3 % (39.0-51.0); HEMOGLOBIN 12.5 GM/DL (13.0-17.0); LYMPH % 6.1 % (9.0-44.0); MEAN CELL VOLUME 86.5 FL (80.0-100.0); MEAN CORPUSCULAR HEMOGLOBIN 28.9 PG (27.0-34.0); MEAN CORPUSCULAR HGB CONC 33.4 % (32.0-36.0); MEAN PLATELET VOLUME 8.8 FL (7.0-11.0); MONO % 5.3 % (0.0-8.0); MONOCYTE # 0.9 TH/MM3 (0-0.9); NEUT % 86.7 % (16.0-70.0); PLATELET COUNT 615 TH/MM3 (150-450); RED BLOOD COUNT 4.31 MIL/MM3 (4.50-5.90); RED CELL DISTRIBUTION WIDTH 15.5 % (11.6-17.2); WHITE BLOOD COUNT 16.7 TH/MM3 (4.0-11.0)
[2017-10-15 08:39] VITALS: BP 168/81; PULSE 64; RESP 18; TEMP 98.4; O2SAT 95
[2017-10-15] MEDS: SODIUM CHLORIDE 0.9% FLUSH 10 ML FLUSH IV FLUSH SCH (09:00)
[2017-10-15] MEDS: DOCUSATE SODIUM 50 MG/SENNA 8.6 MG TAB PO SCH (09:00)
[2017-10-15] MEDS ORDERED: LACTCHW3 CHEW (10:01)
--- NOTE | 2017-10-15 10:01 | HHI.DCPOC ---
Discharge Care Plan Diagnosis: (1) Pneumonia (2) Hypoxia Goals to Promote Your Health * To prevent worsening of your condition and complications * To maintain your health at the optimal level Directions to Meet Your Goals Take your medications as prescribed Follow your dietary instruction Follow activity as directed Keep your appointments as scheduled Take your immunizations and boosters as scheduled If your symptoms worsen call your PCP, if no PCP go to Urgent Care Center or Emergency Room Smoking is Dangerous to Your Health. Avoid second hand smoke Call the 24-hour hour crisis hotline for domestic abuse at Naresh Silva MD Oct 15, 2017 10:01
[2017-10-15] MEDS: BUDESONIDE-FORMOTEROL 160/4.5 MCG INHALER INH SCH (10:02)
[2017-10-15] MEDS: guaiFENesin E.R. 600 MG TAB PO SCH (10:03)
[2017-10-15] MEDS: amLODIPine BESYLATE 5 MG TAB PO SCH (10:04)
--- NOTE | 2017-10-15 10:04 | HHI.DS ---
Discharge Summary Admission Date Oct 11, 2017 at 20:36 Discharge Date: Oct 15, 2017 Admitting Diagnosis acute pneumonia, hypoxia (1) PNA (pneumonia) ICD Code: J18.9 - Pneumonia, unspecified organism (2) HTN (hypertension) ICD Code: I10 - Essential (primary) hypertension (3) Renal insufficiency ICD Code: N28.9 - Disorder of kidney and ureter, unspecified Procedures None Brief History - From Admission This is a 67-year-old male with a PMH of HTN, Hepatitis C, Hyperlipidemia, Depression and Arthritis who presented to the ER w/ complaints of cough and generalized fatigue for almost 2wks. Reports persistent productive cough w/ yellow/brown colored sputum in addition to nasal congestion. Denies fever or chills. Does report associated SOB, worse w/ exertion, moderate severity. No sick contacts. On arrival, BP 180/80, HR 78, O2 sat 94% on RA, Afebrile. WBC 17. Creatinine 1.36, previously 1.56 on 05/30/16. CXR with acute left mid lung and base airspace disease. S/p Rocephin/Zithro in ER. CBC/BMP: 10/15/17 0753 10/14/17 0636 Significant Findings Laboratory Tests Test 10/13/17 06:40 10/14/17 06:36 10/15/17 07:53 White Blood Count 20.1 TH/MM3 (4.0-11.0) 18.3 TH/MM3 (4.0-11.0) 16.7 TH/MM3 (4.0-11.0) Red Blood Count 4.24 MIL/MM3 (4.50-5.90) 4.36 MIL/MM3 (4.50-5.90) 4.31 MIL/MM3 (4.50-5.90) Hemoglobin 12.3 GM/DL (13.0-17.0) 12.4 GM/DL (13.0-17.0) 12.5 GM/DL (13.0-17.0) Hematocrit 37.3 % (39.0-51.0) 37.8 % (39.0-51.0) 37.3 % (39.0-51.0) Platelet Count 566 TH/MM3 (150-450) 628 TH/MM3 (150-450) 615 TH/MM3 (150-450) Neutrophils (%) (Auto) 81.5 % (16.0-70.0) 88.2 % (16.0-70.0) 86.7 % (16.0-70.0) Monocytes (%) (Auto) 8.7 % (0.0-8.0) Neutrophils # (Auto) 16.4 TH/MM3 (1.8-7.7) 16.2 TH/MM3 (1.8-7.7) 14.5 TH/MM3 (1.8-7.7) Monocytes # (Auto) 1.7 TH/MM3 (0-0.9) Blood Urea Nitrogen 19 MG/DL (7-18) Random Glucose 114 MG/DL (74-106) 120 MG/DL (74-106) Lymphocytes (%) (Auto) 5.8 % (9.0-44.0) 6.1 % (9.0-44.0) Neutrophils % (Manual) 72 % (16-70) Band Neutrophils % 9 % (0-6) Neutrophils # (Manual) 15.0 TH/MM3 (1.8-7.7) Platelet Estimate HIGH (NORMAL) Platelet Morphology Comment ENLARGED (NORMAL) Imaging Last Impressions Chest X-Ray 10/11/17 1900 Signed Impressions: Service Date/Time: Wednesday, October 11, 2017 19:11 - CONCLUSION: Acute left mid lung and base airspace disease. Coy Henry MD PE at Discharge General: No acute distress. Heart: Regular rate and rhythm. No murmur. Lungs: Scattered rhonchi. Breathing is nonlabored. Abdomen: Soft, nontender, nondistended. Extremities: No lower extremity edema. Psych: Alert and oriented. Pt update on day of discharge The patient states that his breathing is better. He has had a couple loose stools. No nausea or vomiting. No fever overnight. Hospital Course The patient was admitted for management of pneumonia. Blood pressure was elevated and antihypertensive medications were started. He was continued on antibiotics, bronchodilators, supplemental oxygen. Influenza antigen negative. Blood cultures were negative 3 days. The patient showed clinical improvement and was afebrile for 24 hours prior to discharge. Arrangements were made for home oxygen. Patient was advised to follow-up with his PCP at [facility] or management of the home oxygen. He was advised to return to the hospital for seizures PCP of his symptoms worsen, including shortness of breath and diarrhea. Pt Condition on Discharge: Stable Discharge Disposition: Disch w/ Home Health Serv Discharge Time: > 30 minutes Discharge Instructions DIET: Follow Instructions for: As Tolerated, No Restrictions Activities you can perform: Regular-No Restrictions Follow up Referrals: PCP Follow-up - 1 Week [facility] New Medications: Azithromycin (Azithromycin) 500 Mg Tab 500 MG PO DAILY for Infection, #4 TAB 0 Refills Cefuroxime (Ceftin) 250 Mg Tab 250 MG PO BID for Infection, #8 TAB 0 Refills Lactobacillus Acidophilus (Lactinex) 1 Chew 1 TAB CHEW TID for Nutritional Supplement, #21 TAB 0 Refills Oxygen (O2) (Oxygen (O2)) Device LITER ODESSA.CANULA CONTINUOUS for Prevent Hypoxemia, #2 Oxygen Concentrator Portable Gaseous 2 L/min via Nasal Canula Continuous For 99 months Amlodipine (Norvasc) 5 Mg Tab 5 MG PO DAILY for Blood Pressure Management, #28 TAB 0 Refills Continued Medications: Atorvastatin (Lipitor) 10 Mg Tab 10 MG PO HS for Cholesterol Management, #30 TAB 0 Refills Discontinued Medications: [unknown bp med] () Naresh Silva MD Oct 15, 2017 10:04
[2017-10-15 12:19] VITALS: BP 154/73; PULSE 71; RESP 18; TEMP 99.2; O2SAT 94
== END 2017-10-15 16:30 | disposition home health service (06) | DRG 194 ==
LOC: NEPC 18:25 → NEDA 20:36 → N05B 21:34
PROVIDERS: ADMIT Family Medicine; ATTEND Family Medicine
DX: J18.9 Pneumonia, unspecified organism (principal); N17.9 Acute kidney failure, unspecified; E78.5 Hyperlipidemia, unspecified; I10 Essential (primary) hypertension; R09.81 Nasal congestion; R06.03 Acute respiratory distress; R09.02 Hypoxemia; E86.0 Dehydration; E78.00 Pure hypercholesterolemia, unspecified; M19.90 Unspecified osteoarthritis, unspecified site; F32.9 Major depressive disorder, single episode, unspecified; F43.10 Post-traumatic stress disorder, unspecified; Z86.19 Personal history of other infectious and parasitic diseases
CPT/HCPCS: 71045; 80048; 80053; 83735; 85007; 85025; 85027; 87040; 87804; 94618; 94640; 94664; 96360; J0456; J0696; J7030; J7050

== ENCOUNTER 2018-03-13 03:12 | Emergency (ER) | payer MEDICARE ==
[~2018-03-13 03:12] MED LIST changes: +AMLO5 PO; +AZIT500T2 PO; +CEFU1TAB18 PO; +LACTCHW3 CHEW; +LIPI10TA PO; -MEDR4PAK PO; +OXYGENDME NAS.CANULA
[2018-03-13 03:18] VITALS: BP 198/92; PULSE 62; RESP 19; TEMP 98; O2SAT 98
[2018-03-13] MEDS ORDERED: SUBO2MIS SL (03:25)
[2018-03-13] MEDS ORDERED: ORPHENADRINE INJ 60 MG/2 ML AMP IM ONE (03:45)
[2018-03-13] MEDS ORDERED: KETOROLAC TROMETHAMINE 60 MG/2 ML (IM) VIAL IM ONE (03:45)
[2018-03-13] MEDS ORDERED: MEDR4PAK PO (03:48)
--- NOTE | 2018-03-13 03:53 | PD ---
HPI Chief Complaint: Back/ Neck Pain or Injury Time Seen by Provider: 03:35 Travel History International Travel<30 days: No Contact w/Intl Traveler<30days: No Traveled to known affect area: No History of Present Illness HPI 67-year-old black male with a history of chronic neck and back pain presents to the ER complaining of an exacerbation today. He states that approximately every 6 months to 1 year he has an exacerbation. He is followed through the [facility]. This is similar type pain. He is on chronic pain medications. He denies any injury. No focal numbness, tingling or weakness. No IV drugs. No fever chills. Symptoms are mild to moderate. Worse with movement. Some relief remaining still. PFSH Past Medical History Hx Anticoagulant Therapy: Yes (ASA) Arthritis: Yes (BACK AND LEGS, DJD) Depression: Yes (PTSD) Cardiovascular Problems: Yes (HTN) High Cholesterol: Yes Diminished Hearing: No Hepatitis: Yes (C- treated) Hypertension: Yes Musculoskeletal: Yes (CHRONIC LEG AND BACK PAIN) Neurologic: Yes (PTSD) Immunizations Current: Yes Social History Alcohol Use: No Tobacco Use: No Substance Use: No Allergies-Medications (Allergen,Severity, Reaction): Coded Allergies: No Known Allergies (Verified Adverse Reaction, Unknown, 03/13/18) Reported Meds & Prescriptions Reported Meds & Active Scripts Active Medrol Dosepak (Methylprednisolone) 4 Mg Dspk 4 Mg PO DIRECTED Per Pharmacist direction Lactinex (Lactobacillus Acidophilus) 1 Chew 1 Tab CHEW TID Norvasc (Amlodipine Besylate) 5 Mg Tab 5 Mg PO DAILY Reported Suboxone Sublingual Film (Buprenorphine-Naloxone Sublingual Film) 2-0.5 Mg Film 1 Film SL Unique ID number required: Lipitor (Atorvastatin Calcium) 10 Mg Tab 10 Mg PO HS Review of Systems Except as stated in HPI: all other systems reviewed are Neg Physical Exam Narrative GENERAL: Well-developed, well-nourished in no apparent distress. Nontoxic appearing. HEAD: Normocephalic, atraumatic. EYES: Pupils equal round and reactive. Extraocular motions intact. No scleral icterus. No injection or drainage. ENT: Nose clear. Throat without erythema, tonsillar hypertrophy or exudate. Uvula midline. Airway patent. NECK: Trachea midline. Supple, patient complains of paraspinal tenderness down into the rhomboids and periscapular muscles bilaterally. No central bony tenderness or spasm. CARDIOVASCULAR: Regular rate and rhythm without murmurs, gallops, or rubs. RESPIRATORY: Clear to auscultation. Breath sounds equal bilaterally. No wheezes , rales, or rhonchi. GASTROINTESTINAL: Abdomen soft, non-tender, nondistended. No hepato-splenomegaly , or palpable masses. No guarding. EXTREMITIES: No clubbing, cyanosis, or edema. No joint tenderness. BACK: Nontender without deformity. No flank tenderness. NEUROLOGICAL: Awake, alert and oriented x 3 .Cranial nerves grossly intact. Motor and sensory grossly within normal limits. Normal speech. Data Data Last Documented VS Vital Signs Date Time Temp Pulse Resp B/P (MAP) Pulse Ox O2 Delivery O2 Flow Rate FiO2 03/13/18 03:18 98.0 62 19 198/92 (127) 98 Orders Orders Ketorolac Inj (Toradol Inj) (03/13/18 03:45) Orphenadrine Inj (Norflex Inj) (03/13/18 03:45) Ed Discharge Order (03/13/18 03:48) [facility] Medical Decision Making Medical Screen Exam Complete: Yes Emergency Medical Condition: Yes Medical Record Reviewed: Yes Differential Diagnosis Differential diagnosis: Acute/chronic neck and back pain, degenerative disc disease, spasm, sprain, strain Narrative Course Patient given Toradol 60 mg and Norflex 60 mg IM. He will be given a prescription for Medrol Dosepak and encouraged to follow-up with his primary care doctor. This is acute exacerbation of chronic back pain Diagnosis Primary Impression: Acute exacerbation of chronic neck pain Patient Instructions: General Instructions Departure Forms: Tests/Procedures Additional Instructions: Rest. Medications as directed. [facility] Return to the ER for emergencies. Med/Other Pt SpecificInfo: Prescription(s) given Scripts Methylprednisolone Dosepak (Medrol Dosepak) 4 Mg Dspk 4 MG PO DIRECTED, #1 DSPK 0 Refills Per Pharmacist direction Prov: Carlene Nguyen MD 03/13/18 Disposition: 01 DISCHARGE HOME Condition: Stable Bashir Hernandez Mar 13, 2018 03:53
== END 2018-03-13 03:55 | disposition home or self-care (01) ==
LOC: NEPD 03:12
DX: M54.2 Cervicalgia (principal); G89.29 Other chronic pain; E78.00 Pure hypercholesterolemia, unspecified; I10 Essential (primary) hypertension
CPT/HCPCS: 96372; 99283; J1885; J2360